=== PATIENT | male | born 1960 | race Caucasian/White ===

== ENCOUNTER 2022-02-06 15:57 | Emergency (ER) | payer OTHER ==
[2022-02-06 16:36] LABS: BASOPHIL 1.9 % (0-2); EOSINOPHIL 4.2 % (0-5); HCT 45.1 % (42.0-52.0); HGB 14.4 g/dl (13.2-18.0); LYMPHOCYTE 25.7 % (15-48); MCH 31.5 pg (25.0-31.0); MCHC 31.9 g/dL (32.0-36.0); MCV 98.7 fL (78.0-100.0); MONOCYTE 9.8 % (0-12); MPV 10.6 fL (6.0-9.5); NEUTROPHIL 57.8 % (41-80); NRBC 0; PLT 257 K/uL (150-400); RBC 4.57 M/uL (4.70-6.00); WBC 8.4 K/uL (4.0-10.5)
[2022-02-06 16:41] LABS: INR 1.08 (0.9-1.2); PROTHROMBIN TIME 13.4 SECONDS (11.8-13.4)
[2022-02-06 16:42] LABS: PTT 35.9 SECONDS (24.4-34.7)
[2022-02-06 16:51] LABS: ALBUMIN 3.5 g/dL (3.4-5.0); BILIRUBIN - TOTAL 0.4 mg/dL (0.2-1.0); BUN/CREAT RATIO (CALC) 16.5 RATIO; CREATININE 0.85 mg/dL (0.67-1.17); GLOBULIN (CALCULATION) 4.4 g/dL; POTASSIUM 3.8 mmol/L (3.5-5.1); TOTAL PROTEIN 7.9 g/dL (6.4-8.2)
== END 2022-02-06 18:06 | disposition other institution (70) ==
LOC: FER 15:57
PROVIDERS: Emergency Medicine
DX: I63.9 Cerebral infarction, unspecified (principal); F17.210 Nicotine dependence, cigarettes, uncomplicated; R29.739 NIHSS score 39; Z86.73 Personal history of transient ischemic attack (TIA), and cerebral infarction without residual deficits; Z79.02 Long term (current) use of antithrombotics/antiplatelets; Z79.82 Long term (current) use of aspirin; Z79.899 Other long term (current) drug therapy
CPT/HCPCS: 36415; 70450; 71045; 80053; 83735; 84484; 85025; 85610; 85730; 93005; J2997